=== PATIENT | female | born 1985 | race American Indian/Alaskan Native ===

== ENCOUNTER 2022-04-25 12:58 | Observation (INO) | payer OTHER, MEDICAID ==
[2022-04-25] MEDS ORDERED: cefTRIAXone 1 GM Vial IVPUSH ONE (14:00)
[2022-04-25] MEDS ORDERED: Nicotine 21 MG/24 Hr Patch TRDERM SCH (14:00)
[2022-04-25] MEDS ORDERED: Non-Formulary Medication 1 Each (Acetaminophen [Acetaminophen] 325 MG Tablet) PO SCH (14:00)
[2022-04-25] MEDS: Acetaminophen 325 MG Tab PO PRN ×2 (14:56→20:02)
[2022-04-25] MEDS: Ondansetron 4 MG Tab.DIS PO PRN (20:03)
[2022-04-26] MEDS: Acetaminophen 325 MG Tab PO PRN ×5 (01:10→19:58)
[2022-04-26] MEDS: Ondansetron 4 MG Tab.DIS PO PRN ×2 (07:44→19:55)
[2022-04-26] MEDS ORDERED: NS + KCl 20mEq/L 1,000 ML IV SCH (09:30)
[2022-04-26] MEDS: cefTRIAXone 1 GM Vial IVPUSH SCH (11:58)
[2022-04-26] MEDS: Enoxaparin 40 MG/0.4 ML Syringe SUBCUT SCH (11:58)
[2022-04-27] MEDS: Acetaminophen 325 MG Tab PO PRN (08:00)
[2022-04-27] MEDS ORDERED: Potassium Chloride 10 MEQ Tab.ER PO ONE (09:32)
[2022-04-27] MEDS ORDERED: Sodium Chloride 0.9% 1,000 ML IV SCH (09:45)
[2022-04-27] MEDS: Enoxaparin 40 MG/0.4 ML Syringe SUBCUT SCH (11:45)
[2022-04-27] MEDS: cefTRIAXone 1 GM Vial IVPUSH SCH (11:45)
[2022-04-27 14:35] VITALS: BP 139/87; PULSE 63
== END 2022-04-27 13:50 | disposition home or self-care (01) ==
LOC: UNDOADMOB 13:16 → CC.MS 13:16
PROVIDERS: ADMIT Nurse Practitioner Family; ATTEND Nurse Practitioner Family
DX: N12 Tubulo-interstitial nephritis, not specified as acute or chronic (principal); Z88.8 Allergy status to other drugs, medicaments and biological substances; Z79.899 Other long term (current) drug therapy; R05.9 Cough, unspecified; E87.6 Hypokalemia
CPT/HCPCS: 36415; 71046; 80048; 80053; 81001; 81003; 85025; 85027; 96361; 96365; 96366; 96372; 96375; 96376; 99217; 99220; 99225; A9270-GY; G0378; J0696; J1650; J3480; J7030